=== PATIENT | female | born 1955 | race Caucasian/White ===

== ENCOUNTER 2017-07-08 08:16 | Outpatient (CLI) | payer MEDICAID ==
[~2017-07-08 08:16] MED LIST: ALBU18HF2 IH; ALBU18HF2 INH; ASPI-611 PO; CITA20TA11 PO; DIPH1TAB PO; EPIN0.3A3 IM; FLUT16SP10 NS; GABA-338 PO; IPRA3AMP IH; MECL-111 PO; MEGE20TA PO; MELO-100 PO; MODA200T25 PO; OMEP20TA5 PO; ONDA8TAB6 PO; OXYC30TA88 PO; PANCREAZE 4,201 EACH PO; VAL5T PO; ZONI100C6 PO
== END 2017-07-08 23:59 | disposition home or self-care (01) ==
LOC: RAD 08:16
DX: R56.9 Unspecified convulsions (principal); I10 Essential (primary) hypertension; E11.9 Type 2 diabetes mellitus without complications; J44.9 Chronic obstructive pulmonary disease, unspecified; Z87.891 Personal history of nicotine dependence
CPT/HCPCS: 95819

== ENCOUNTER 2017-08-10 13:03 | Emergency (ER) | payer MEDICAID ==
[~2017-08-10] VITALS: Ht 152.4 cm; Wt 49.6 kg
[~2017-08-10 13:03] MED LIST changes: +CITA-278 PO; -CITA20TA11 PO
[2017-08-10] MEDS ORDERED: normal saline 1000ml 1,000 ML IV ONE ×2 (13:21→14:38)
[2017-08-10 13:52] LABS: BASOPHILS % (AUTO) 0.1 % (0-1); EOSINOPHILS # (AUTO) 0.1 X10'3 (0-0.9); EOSINOPHILS % (AUTO) 0.9 % (0-6); HEMATOCRIT 34.7 % (35.0-45.0); HEMOGLOBIN 11.7 g/dl (12.0-16.0); LYMPHOCYTES # (AUTO) 0.7 X10'3 (1.1-4.8); LYMPHOCYTES % (AUTO) 8.6 % (21-51); MEAN CORPUSCULAR HEMOGLOBIN 32.6 PG (27.0-31.0); MEAN CORPUSCULAR HGB CONC 33.7 % (33.0-36.5); MEAN CORPUSCULAR VOLUME 96.7 FL (78-98); MEAN PLATELET VOLUME 7.8 FL (7.4-10.4); MONOCYTES % (AUTO) 0.4 % (2-12); NEUTROPHILS # (AUTO) 6.9 X10'3 (1.8-7.7); PLATELET COUNT 336 X10'3 (140-440); RED BLOOD COUNT 3.59 X10'6 (4.20-5.60); RED CELL DISTRIBUTION WIDTH 16.5 % (11.5-14.5); WHITE BLOOD COUNT 7.6 X10'3 (4.5-11.0)
[2017-08-10 14:01] LABS: INR 1.1 INR; PARTIAL THROMBOPLASTIN TIME 29 SECONDS (22-32); PROTHROMBIN TIME 10.9 SECONDS (9.0-12.0)
[2017-08-10 14:15] LABS: ALANINE AMINOTRANSFERASE 18 U/L (12-78); ALBUMIN 3.1 G/DL (3.4-5.0); ALBUMIN/GLOBULIN RATIO 0.7 (1.1-1.5); ALKALINE PHOSPHATASE 104 IU/L (46-116); ANION GAP 9 (8-16); ASPARTATE AMINO TRANSFERASE 24 U/L (10-37); BILIRUBIN,TOTAL 0.3 MG/DL (0.1-1.0); BLOOD UREA NITROGEN 10 MG/DL (7-18); BUN/CREATININE RATIO 8.6 (6.6-38.0); CHLORIDE 103 MMOL/L (99-107); CREATININE 1.16 MG/DL (0.40-0.90); ETHANOL < 0.010 GM/DL (0.0-0.010); GLUCOSE 152 MG/DL (70-104); LIPASE 106 U/L (73-393); MAGNESIUM 1.8 MG/DL (1.5-2.4); POTASSIUM 3.8 MMOL/L (3.5-5.1); SODIUM 137 MMOL/L (135-145); TOTAL CARBON DIOXIDE 24.7 MMOL/L (24-32); TOTAL PROTEIN 7.6 G/DL (6.4-8.2); eGFR 47 ML/MIN
[2017-08-10] MEDS ORDERED: normal saline 1000ML IV soln IVB ONE (14:40)
[2017-08-10 15:56] LABS: CLARITY,URINE SLIGHTLY CLOUDY (Clear); COLOR,URINE YELLOW (Yellow); GLUCOSE, URINE NEGATIVE (Neg); KETONES,URINE NEGATIVE (Neg); LEUKOCYTE ESTERASE ,URINE MODERATE (Neg); NITRITES, URINE POSITIVE (Neg); OCCULT BLOOD,URINE TRACE-INTACT (Neg); PH,URINE 6.5 (4.8-8.0); PROTEIN,URINE NEGATIVE (Neg); UROBILINOGEN,URINE 0.2 E.U/dL (0.2-1.0)
[2017-08-10 15:59] LABS: UA COLLECTION TYPE CLN CATCH MIDSTREAM
[2017-08-10 16:08] LABS: URINE AMPHETAMINE SCREEN NEGATIVE (Neg); URINE BARBITUATE SCREEN NEGATIVE (Neg); URINE BENZODIAZEPINES SCREEN POSITIVE (Neg); URINE CANNABINOID SCREEN NEGATIVE (Neg); URINE COCAINE SCREEN NEGATIVE (Neg); URINE METHADONE SCREEN NEGATIVE (Neg); URINE OPIATE SCREEN POSITIVE (Neg); URINE PHENCYCLIDINE SCREEN NEGATIVE (Neg)
[2017-08-10 16:24] LABS: BACTERIA,URINE 4+ /HPF (Neg); MUCUS STRANDS FEW /LPF (Neg); RBC,URINE 0-2 /HPF (0-2); SQUAMOUS EPITHELIAL CELL,UR FEW /LPF (FEW)
[2017-08-10 16:25] LABS: HYALINE CASTS 0-3 /LPF (NEGATIVE)
[2017-08-10 16:26] LABS: WBC CLUMPS,URINE FEW /HPF (NEGATIVE)
[2017-08-10] MEDS ORDERED: CEPH250T PO (16:49)
[2017-08-10] MEDS ORDERED: CefTRIAXone 2gm/D5W 50ml 50 ML IV ONE (16:50)
[2017-08-10 18:12] VITALS: BP 121/55
== END 2017-08-10 18:17 | disposition home or self-care (01) ==
LOC: ER 13:04
DX: N39.0 Urinary tract infection, site not specified (principal); I10 Essential (primary) hypertension; K21.9 Gastro-esophageal reflux disease without esophagitis; E11.9 Type 2 diabetes mellitus without complications; G89.29 Other chronic pain; Z86.73 Personal history of transient ischemic attack (TIA), and cerebral infarction without residual deficits; Z90.49 Acquired absence of other specified parts of digestive tract; Z98.890 Other specified postprocedural states; Z88.5 Allergy status to narcotic agent; Z88.8 Allergy status to other drugs, medicaments and biological substances; Z91.030 Bee allergy status; Z79.82 Long term (current) use of aspirin; Z79.899 Other long term (current) drug therapy; W19.XXXA Unspecified fall, initial encounter; Y92.89 Other specified places as the place of occurrence of the external cause; Y93.89 Activity, other specified; Y99.8 Other external cause status
CPT/HCPCS: 36415; 71045; 80053; 80305; 80320; 81001; 83605; 83690; 83735; 83880; 84484; 85025; 85610; 85730; 87040; 87077; 87088; 87186; 96365; 99285; J0696; J7030

== ENCOUNTER 2017-10-22 22:59 | Emergency (ER) | payer MEDICAID ==
[~2017-10-22] VITALS: Ht 162.6 cm; Wt 45.0 kg
[~2017-10-22 22:59] MED LIST changes: +CEPH250T PO; -IPRA3AMP IH; +IPRA3AMP31 IH
[2017-10-22 23:49] LABS: BASOPHILS % (AUTO) 0 % (0-1); EOSINOPHILS # (AUTO) 0.2 X10'3 (0-0.9); EOSINOPHILS % (AUTO) 1.2 % (0-6); HEMATOCRIT 31.5 % (35.0-45.0); HEMOGLOBIN 10.6 g/dl (12.0-16.0); LYMPHOCYTES # (AUTO) 1.3 X10'3 (1.1-4.8); MEAN CORPUSCULAR HEMOGLOBIN 32.9 PG (27.0-31.0); MEAN CORPUSCULAR HGB CONC 33.6 % (33.0-36.5); MEAN CORPUSCULAR VOLUME 97.8 FL (78-98); MEAN PLATELET VOLUME 7.6 FL (7.4-10.4); MONOCYTES # (AUTO) 0.1 X10'3 (0-0.9); NEUTROPHILS # (AUTO) 12.6 X10'3 (1.8-7.7); NEUTROPHILS % (AUTO) 88.8 % (42-75); PLATELET COUNT 362 X10'3 (140-440); RED BLOOD COUNT 3.22 X10'6 (4.20-5.60); RED CELL DISTRIBUTION WIDTH 15.5 % (11.5-14.5); WHITE BLOOD COUNT 14.2 X10'3 (4.5-11.0)
[2017-10-22 23:55] LABS: INR 1.1 INR; PROTHROMBIN TIME 11.5 SECONDS (9.0-12.0)
[2017-10-22 23:59] LABS: ALANINE AMINOTRANSFERASE 13 U/L (12-78); ALBUMIN/GLOBULIN RATIO 0.7 (1.1-1.5); ALKALINE PHOSPHATASE 274 IU/L (46-116); AMYLASE 575 U/L (25-115); ANION GAP 12 (8-16); ASPARTATE AMINO TRANSFERASE 15 U/L (10-37); BILIRUBIN,TOTAL 0.3 MG/DL (0.1-1.0); BLOOD UREA NITROGEN 27 MG/DL (7-18); BUN/CREATININE RATIO 18.5 (6.6-38.0); CALCIUM 9.3 MG/DL (8.5-10.1); CHLORIDE 98 MMOL/L (99-107); CREATININE 1.46 MG/DL (0.40-0.90); GLUCOSE 158 MG/DL (70-104); POTASSIUM 3.5 MMOL/L (3.5-5.1); SODIUM 130 MMOL/L (135-145); TOTAL CARBON DIOXIDE 20.5 MMOL/L (24-32); TOTAL PROTEIN 7.5 G/DL (6.4-8.2); eGFR 36 ML/MIN
[2017-10-23 00:23] LABS: LIPASE 3292 U/L (73-393)
[2017-10-23] MEDS ORDERED: ondansetron/PF 4mg/2ml inj IV ONE (01:00)
[2017-10-23] MEDS ORDERED: morphine 4 MG/ML inj SYRINge IV ONE (01:00)
[2017-10-23] MEDS ORDERED: normal saline 1000ML IV soln IVB ONE (01:00)
[2017-10-23 01:19] LABS: ETHANOL < 0.010 GM/DL (0.0-0.010); MAGNESIUM 1.5 MG/DL (1.5-2.4)
[2017-10-23 01:37] LABS: LARGE PLATELETS FEW; PLATELET ESTIMATE NORMAL; TOTAL CELLS COUNTED 100
[2017-10-23 01:38] LABS: BURR CELLS 1+; POIKILOCYTOSIS FEW; SCHISTOCYTES FEW
[2017-10-23 01:41] LABS: CLARITY,URINE SLIGHTLY CLOUDY (Clear); COLOR,URINE YELLOW (Yellow); GLUCOSE, URINE NEGATIVE (Neg); KETONES,URINE NEGATIVE (Neg); LEUKOCYTE ESTERASE ,URINE TRACE (Neg); NITRITES, URINE NEGATIVE (Neg); OCCULT BLOOD,URINE TRACE-INTACT (Neg); PROTEIN,URINE TRACE mg/dl (Neg); UROBILINOGEN,URINE 0.2 E.U/dL (0.2-1.0)
[2017-10-23 01:49] LABS: UA COLLECTION TYPE STRAIGHT CATH
[2017-10-23 02:10] LABS: RBC,URINE 0-2 /HPF (0-2); WBC,URINE 0-4 /HPF (0-4)
[2017-10-23 02:11] LABS: BACTERIA,URINE 3+ /HPF (Neg); MUCUS STRANDS NONE SEEN /LPF (Neg); SQUAMOUS EPITHELIAL CELL,UR MANY /LPF (FEW)
[2017-10-23 03:35] VITALS: BP 127/71
== END 2017-10-23 03:44 | disposition home or self-care (01) ==
LOC: ER 23:00
DX: K85.90 Acute pancreatitis without necrosis or infection, unspecified (principal); E86.0 Dehydration; I70.0 Atherosclerosis of aorta; I10 Essential (primary) hypertension; K21.9 Gastro-esophageal reflux disease without esophagitis; G89.29 Other chronic pain; E11.9 Type 2 diabetes mellitus without complications; Z90.49 Acquired absence of other specified parts of digestive tract; Z98.890 Other specified postprocedural states; Z79.2 Long term (current) use of antibiotics; Z88.8 Allergy status to other drugs, medicaments and biological substances; Z88.1 Allergy status to other antibiotic agents; Z91.030 Bee allergy status; Z79.82 Long term (current) use of aspirin; Z79.899 Other long term (current) drug therapy; Z86.73 Personal history of transient ischemic attack (TIA), and cerebral infarction without residual deficits
CPT/HCPCS: 36415; 74176; 80053; 80320; 81001; 82150; 83690; 83735; 85025; 85610; 87077; 87088; 87186; 96361; 96374; 96375; 99285; J2270; J2405

== ENCOUNTER 2017-11-06 16:09 | Inpatient (IN) | payer MEDICAID ==
[~2017-11-06] VITALS: Ht 152.4 cm; Wt 56.2 kg
[2017-11-06] MEDS ORDERED: normal saline 1000ML IV soln IVB ONE (16:25)
[2017-11-06 16:52] LABS: BASOPHILS # (AUTO) 0.1 X10'3 (0-0.2); BASOPHILS % (AUTO) 0.4 % (0-1); EOSINOPHILS # (AUTO) 0.2 X10'3 (0-0.9); EOSINOPHILS % (AUTO) 1.4 % (0-6); HEMATOCRIT 32.3 % (35.0-45.0); HEMOGLOBIN 10.9 g/dl (12.0-16.0); LYMPHOCYTES # (AUTO) 2.2 X10'3 (1.1-4.8); LYMPHOCYTES % (AUTO) 16.1 % (21-51); MEAN CORPUSCULAR HEMOGLOBIN 33.4 PG (27.0-31.0); MEAN CORPUSCULAR HGB CONC 33.9 % (33.0-36.5); MEAN CORPUSCULAR VOLUME 98.7 FL (78-98); MEAN PLATELET VOLUME 7.1 FL (7.4-10.4); MONOCYTES # (AUTO) 0.6 X10'3 (0-0.9); MONOCYTES % (AUTO) 4.8 % (2-12); NEUTROPHILS # (AUTO) 10.5 X10'3 (1.8-7.7); NEUTROPHILS % (AUTO) 77.3 % (42-75); PLATELET COUNT 401 X10'3 (140-440); RED BLOOD COUNT 3.27 X10'6 (4.20-5.60); RED CELL DISTRIBUTION WIDTH 17.7 % (11.5-14.5); WHITE BLOOD COUNT 13.6 X10'3 (4.5-11.0)
[2017-11-06 17:01] LABS: INR 1.2 INR; PROTHROMBIN TIME 12.1 SECONDS (9.0-12.0)
[2017-11-06 17:07] LABS: ALANINE AMINOTRANSFERASE 38 U/L (12-78); ALBUMIN 2.5 G/DL (3.4-5.0); ALBUMIN/GLOBULIN RATIO 0.6 (1.1-1.5); ALKALINE PHOSPHATASE 205 IU/L (46-116); ANION GAP 15 (8-16); ASPARTATE AMINO TRANSFERASE 39 U/L (10-37); BILIRUBIN,TOTAL 0.6 MG/DL (0.1-1.0); BLOOD UREA NITROGEN 20 MG/DL (7-18); BUN/CREATININE RATIO 14.7 (6.6-38.0); CALCIUM 8.3 MG/DL (8.5-10.1); CHLORIDE 96 MMOL/L (99-107); CREATININE 1.36 MG/DL (0.40-0.90); ETHANOL < 0.010 GM/DL (0.0-0.010); GLUCOSE 133 MG/DL (70-104); LIPASE 422 U/L (73-393); SODIUM 131 MMOL/L (135-145); TOTAL CARBON DIOXIDE 20.5 MMOL/L (24-32); TOTAL PROTEIN 6.6 G/DL (6.4-8.2); eGFR 39 ML/MIN
[2017-11-06 17:10] LABS: POTASSIUM 2.4 MMOL/L (3.5-5.1)
[2017-11-06] MEDS: potassium 10mEq/100ml NS w/LIDOcaine (10mg/bag) IV SCH ×2 (17:59→20:47)
[2017-11-06 18:00] LABS: CLARITY,URINE CLOUDY (Clear); COLOR,URINE YELLOW (Yellow); GLUCOSE, URINE NEGATIVE (Neg); KETONES,URINE NEGATIVE (Neg); LEUKOCYTE ESTERASE ,URINE SMALL (Neg); NITRITES, URINE NEGATIVE (Neg); OCCULT BLOOD,URINE TRACE-LYSED (Neg); PROTEIN,URINE TRACE mg/dl (Neg); UROBILINOGEN,URINE 0.2 E.U/dL (0.2-1.0)
[2017-11-06 18:04] LABS: UA COLLECTION TYPE STRAIGHT CATH
[2017-11-06 18:09] LABS: URINE AMPHETAMINE SCREEN NEGATIVE (Neg); URINE BARBITUATE SCREEN NEGATIVE (Neg); URINE BENZODIAZEPINES SCREEN NEGATIVE (Neg); URINE CANNABINOID SCREEN NEGATIVE (Neg); URINE COCAINE SCREEN NEGATIVE (Neg); URINE METHADONE SCREEN NEGATIVE (Neg); URINE OPIATE SCREEN POSITIVE (Neg); URINE PHENCYCLIDINE SCREEN NEGATIVE (Neg)
[2017-11-06 18:10] LABS: BACTERIA,URINE 4+ /HPF (Neg); MUCUS STRANDS NONE SEEN /LPF (Neg); RBC,URINE 0-2 /HPF (0-2); RENAL CELLS, URINE MODERATE /HPF; SQUAMOUS EPITHELIAL CELL,UR MANY /LPF (FEW); WBC CLUMPS,URINE MODERATE /HPF (NEGATIVE); WBC,URINE 20-30 /HPF (0-4)
[2017-11-06] MEDS ORDERED: CefTRIAXone/D5W-Rocephin 1gm 50 ML IV ONE (19:25)
[2017-11-06] MEDS ORDERED: acetaminophen 325mg tablet PO PRN (20:00)
[2017-11-06] MEDS ORDERED: ondansetron/PF 4mg/2ml inj IV PRN (20:00)
[2017-11-06] MEDS ORDERED: heparin, porcine 5000 units/ml vial SQ SCH (20:00)
[2017-11-06] MEDS ORDERED: OXYC20TA40 PO (20:05)
[2017-11-06] MEDS ORDERED: GABA600T2 PO (20:05)
[2017-11-06] MEDS ORDERED: LORazepam 2 mg/ml vial IV PRN (20:05)
[2017-11-06] MEDS ORDERED: potassium Cl 40MEQ/NS 500ml 500 ML IV PRN ×2 (20:05)
[2017-11-06] MEDS: potassium cl 20mEq in 1/2 NS 1,000 ML IV SCH (20:30)
[2017-11-06] MEDS: heparin, porcine 5000 units/ml vial SQ SCH (20:47)
[2017-11-06] MEDS: HYDROmorphone 1 mg/ml syringe IV PRN (20:49)
[2017-11-06 21:30] VITALS: BP 105/61
[2017-11-07] VITALS: BP 113/63
[2017-11-07 05:19] LABS: BASOPHILS % (AUTO) 0.1 % (0-1); EOSINOPHILS # (AUTO) 0.2 X10'3 (0-0.9); EOSINOPHILS % (AUTO) 1.7 % (0-6); HEMOGLOBIN 9.6 g/dl (12.0-16.0); LYMPHOCYTES # (AUTO) 2.5 X10'3 (1.1-4.8); LYMPHOCYTES % (AUTO) 19.4 % (21-51); MEAN CORPUSCULAR HEMOGLOBIN 33.1 PG (27.0-31.0); MEAN CORPUSCULAR HGB CONC 33.1 % (33.0-36.5); MEAN CORPUSCULAR VOLUME 99.7 FL (78-98); MEAN PLATELET VOLUME 7.7 FL (7.4-10.4); MONOCYTES # (AUTO) 0.7 X10'3 (0-0.9); NEUTROPHILS # (AUTO) 9.7 X10'3 (1.8-7.7); NEUTROPHILS % (AUTO) 73.8 % (42-75); PLATELET COUNT 387 X10'3 (140-440); RED BLOOD COUNT 2.91 X10'6 (4.20-5.60); WHITE BLOOD COUNT 13.1 X10'3 (4.5-11.0)
[2017-11-07] MEDS: potassium cl 20mEq in 1/2 NS 1,000 ML IV SCH ×3 (05:56→21:06)
[2017-11-07 06:32] LABS: ALANINE AMINOTRANSFERASE 28 U/L (12-78); ALBUMIN/GLOBULIN RATIO 0.6 (1.1-1.5); ALKALINE PHOSPHATASE 161 IU/L (46-116); ANION GAP 11 (8-16); ASPARTATE AMINO TRANSFERASE 30 U/L (10-37); BILIRUBIN,TOTAL 0.3 MG/DL (0.1-1.0); BLOOD UREA NITROGEN 16 MG/DL (7-18); BUN/CREATININE RATIO 13.9 (6.6-38.0); CALCIUM 7.6 MG/DL (8.5-10.1); CHLORIDE 106 MMOL/L (99-107); CREATININE 1.15 MG/DL (0.40-0.90); GLUCOSE 68 MG/DL (70-104); MAGNESIUM 1.4 MG/DL (1.5-2.4); POTASSIUM 3.8 MMOL/L (3.5-5.1); SODIUM 136 MMOL/L (135-145); TOTAL CARBON DIOXIDE 19.3 MMOL/L (24-32); TOTAL PROTEIN 5.4 G/DL (6.4-8.2); eGFR 48 ML/MIN
[2017-11-07 07:00] VITALS: BP 147/84
[2017-11-07] MEDS ORDERED: thiamine 100mg/ml 2ml inj. IV SCH (08:00)
[2017-11-07] MEDS: zonisamide 100mg capsule PO SCH (08:00)
[2017-11-07] MEDS: pantoprazole 40 MG vial IV SCH (08:57)
[2017-11-07] MEDS: cefTRIAXone 1g/NS 100ml IVPB 100 ML IV SCH (08:57)
[2017-11-07] MEDS: heparin, porcine 5000 units/ml vial SQ SCH ×2 (08:58→19:38)
[2017-11-07] MEDS: thiamine inj. 100 MG in normal saline 100ml IV soln 99 ML IV SCH (09:52)
[2017-11-07 11:00] VITALS: BP 124/75
[2017-11-07] MEDS: HYDROmorphone 1 mg/ml syringe IV PRN ×2 (19:37→23:24)
[2017-11-07 20:00] VITALS: BP 137/79
[2017-11-07 23:00] VITALS: BP 132/85
[2017-11-08] MEDS: HYDROmorphone 1 mg/ml syringe IV PRN ×2 (03:43→19:42)
[2017-11-08 05:57] LABS: BASOPHILS % (AUTO) 0.3 % (0-1); EOSINOPHILS # (AUTO) 0.3 X10'3 (0-0.9); EOSINOPHILS % (AUTO) 1.8 % (0-6); HEMATOCRIT 30.9 % (35.0-45.0); HEMOGLOBIN 10.1 g/dl (12.0-16.0); LYMPHOCYTES # (AUTO) 1.9 X10'3 (1.1-4.8); LYMPHOCYTES % (AUTO) 13.7 % (21-51); MEAN CORPUSCULAR HEMOGLOBIN 32.9 PG (27.0-31.0); MEAN CORPUSCULAR HGB CONC 32.7 % (33.0-36.5); MEAN CORPUSCULAR VOLUME 100.5 FL (78-98); MEAN PLATELET VOLUME 8.3 FL (7.4-10.4); MONOCYTES # (AUTO) 0.7 X10'3 (0-0.9); MONOCYTES % (AUTO) 4.7 % (2-12); NEUTROPHILS # (AUTO) 11.3 X10'3 (1.8-7.7); NEUTROPHILS % (AUTO) 79.5 % (42-75); PLATELET COUNT 412 X10'3 (140-440); RED BLOOD COUNT 3.07 X10'6 (4.20-5.60); WHITE BLOOD COUNT 14.2 X10'3 (4.5-11.0)
[2017-11-08 06:20] LABS: ALANINE AMINOTRANSFERASE 28 U/L (12-78); ALBUMIN 2.3 G/DL (3.4-5.0); ALBUMIN/GLOBULIN RATIO 0.6 (1.1-1.5); ALKALINE PHOSPHATASE 164 IU/L (46-116); ANION GAP 14 (8-16); ASPARTATE AMINO TRANSFERASE 28 U/L (10-37); BILIRUBIN,TOTAL 0.5 MG/DL (0.1-1.0); BLOOD UREA NITROGEN 10 MG/DL (7-18); BUN/CREATININE RATIO 9.9 (6.6-38.0); CALCIUM 7.8 MG/DL (8.5-10.1); CHLORIDE 102 MMOL/L (99-107); CREATININE 1.01 MG/DL (0.40-0.90); GLUCOSE 88 MG/DL (70-104); MAGNESIUM 1.3 MG/DL (1.5-2.4); POTASSIUM 3.6 MMOL/L (3.5-5.1); PREALBUMIN 11.7 MG/DL (19-36); SODIUM 131 MMOL/L (135-145); TOTAL CARBON DIOXIDE 15.5 MMOL/L (24-32); TOTAL PROTEIN 5.9 G/DL (6.4-8.2); eGFR 55 ML/MIN
[2017-11-08 07:55] VITALS: BP 150/69
[2017-11-08] MEDS: pantoprazole 40 MG vial IV SCH (08:18)
[2017-11-08] MEDS: heparin, porcine 5000 units/ml vial SQ SCH ×2 (08:19→19:42)
[2017-11-08] MEDS: cefTRIAXone 1g/NS 100ml IVPB 100 ML IV SCH (08:19)
[2017-11-08] MEDS: thiamine inj. 100 MG in normal saline 100ml IV soln 99 ML IV SCH (09:18)
[2017-11-08] MEDS ORDERED: potassium Cl 40MEQ/NS 500ml 500 ML IV PRN ×2 (09:30)
[2017-11-08] MEDS ORDERED: magnesium 4gm in 100ml NS 100 ML IV PRN (09:30)
[2017-11-08] MEDS ORDERED: magnesium Cl slow-release 64mg tablet PO PRN (09:30)
[2017-11-08] MEDS ORDERED: dextrose 5%-1/2 normal saline 1,000 ML IV SCH (09:30)
[2017-11-08] MEDS ORDERED: potassium Cl 20 mEq SR tablet PO PRN ×2 (09:30)
[2017-11-08] MEDS: zonisamide 100mg capsule PO SCH (10:03)
[2017-11-08 11:50] VITALS: BP 134/84
[2017-11-08] MEDS ORDERED: LIPA1CAP28 PO (13:35)
[2017-11-08] MEDS ORDERED: LIPA1CAP PO ×2 (13:40)
[2017-11-08] MEDS ORDERED: ASPI-611 PO (13:40)
[2017-11-08] MEDS: magnesium 1gm/100ml D5W IVPB 100 ML IV PRN ×2 (14:40→16:02)
[2017-11-08 20:00] VITALS: BP 113/82
[2017-11-08] MEDS ORDERED: MESSAGE TO PHARMACY PO ONE (20:15)
[2017-11-08] MEDS ORDERED: dextrose 50%-water 50ml dispensing syringe IV PRN ×2 (20:15)
[2017-11-08] MEDS ORDERED: dextrose ORAL solution 15 GM/59 ML bottle PO PRN ×2 (20:15)
[2017-11-08] MEDS ORDERED: glucagon, human recombinant 1mg kit SUBCUT PRN (20:15)
[2017-11-08] MEDS: insulin regular, human vial - multi-dose SQ SCH (20:44)
[2017-11-08 23:46] VITALS: BP 98/71
[2017-11-09] MEDS: HYDROmorphone 1 mg/ml syringe IV PRN ×3 (01:32→18:51)
[2017-11-09 05:27] LABS: BASOPHILS % (AUTO) 0.2 % (0-1); EOSINOPHILS # (AUTO) 0.1 X10'3 (0-0.9); EOSINOPHILS % (AUTO) 0.5 % (0-6); LYMPHOCYTES # (AUTO) 2.4 X10'3 (1.1-4.8); LYMPHOCYTES % (AUTO) 13.9 % (21-51); MEAN CORPUSCULAR HEMOGLOBIN 33.4 PG (27.0-31.0); MEAN CORPUSCULAR HGB CONC 33.4 % (33.0-36.5); MEAN CORPUSCULAR VOLUME 100.1 FL (78-98); MEAN PLATELET VOLUME 8.2 FL (7.4-10.4); MONOCYTES # (AUTO) 0.8 X10'3 (0-0.9); MONOCYTES % (AUTO) 4.8 % (2-12); NEUTROPHILS # (AUTO) 13.6 X10'3 (1.8-7.7); NEUTROPHILS % (AUTO) 80.6 % (42-75); PLATELET COUNT 392 X10'3 (140-440); WHITE BLOOD COUNT 16.9 X10'3 (4.5-11.0)
[2017-11-09 06:05] LABS: ALANINE AMINOTRANSFERASE 29 U/L (12-78); ALBUMIN 2.2 G/DL (3.4-5.0); ALBUMIN/GLOBULIN RATIO 0.6 (1.1-1.5); ALKALINE PHOSPHATASE 166 IU/L (46-116); ANION GAP 11 (8-16); ASPARTATE AMINO TRANSFERASE 42 U/L (10-37); BILIRUBIN,TOTAL 0.3 MG/DL (0.1-1.0); BLOOD UREA NITROGEN 12 MG/DL (7-18); CHLORIDE 104 MMOL/L (99-107); CREATININE 0.92 MG/DL (0.40-0.90); GLUCOSE 78 MG/DL (70-104); MAGNESIUM 2.8 MG/DL (1.5-2.4); POTASSIUM 3.2 MMOL/L (3.5-5.1); SODIUM 134 MMOL/L (135-145); TOTAL CARBON DIOXIDE 19.4 MMOL/L (24-32); TOTAL PROTEIN 5.9 G/DL (6.4-8.2); eGFR 61 ML/MIN
[2017-11-09 07:13] VITALS: BP 104/66
[2017-11-09 07:18] LABS: HEMOGLOBIN A1C 5.9 % (4.5-6.2)
[2017-11-09] MEDS: thiamine inj. 100 MG in normal saline 100ml IV soln 99 ML IV SCH (08:40)
[2017-11-09] MEDS: heparin, porcine 5000 units/ml vial SQ SCH ×2 (08:41→18:50)
[2017-11-09] MEDS: pantoprazole 40 MG vial IV SCH (08:41)
[2017-11-09] MEDS: cefTRIAXone 1g/NS 100ml IVPB 100 ML IV SCH (08:42)
[2017-11-09] MEDS: zonisamide 100mg capsule PO SCH (08:45)
[2017-11-09 12:00] VITALS: BP 104/68
[2017-11-09] MEDS: lactobacillus rhamnosus 10,000 MMU CELLS/CAPSULE PO SCH (19:15)
[2017-11-09 20:00] VITALS: BP 102/71
[2017-11-10] VITALS: BP 92/67
[2017-11-10 01:48] VITALS: BP 105/71
[2017-11-10] MEDS: HYDROmorphone 1 mg/ml syringe IV PRN ×4 (01:53→20:18)
[2017-11-10 04:48] LABS: BASOPHILS # (AUTO) 0.1 X10'3 (0-0.2); BASOPHILS % (AUTO) 0.5 % (0-1); EOSINOPHILS # (AUTO) 0.4 X10'3 (0-0.9); EOSINOPHILS % (AUTO) 2.4 % (0-6); HEMATOCRIT 33.6 % (35.0-45.0); HEMOGLOBIN 11.1 g/dl (12.0-16.0); LYMPHOCYTES # (AUTO) 1.9 X10'3 (1.1-4.8); LYMPHOCYTES % (AUTO) 12.7 % (21-51); MEAN CORPUSCULAR HEMOGLOBIN 33.2 PG (27.0-31.0); MEAN CORPUSCULAR HGB CONC 33.1 % (33.0-36.5); MEAN CORPUSCULAR VOLUME 100.5 FL (78-98); MEAN PLATELET VOLUME 8.4 FL (7.4-10.4); MONOCYTES # (AUTO) 0.5 X10'3 (0-0.9); MONOCYTES % (AUTO) 3.4 % (2-12); PLATELET COUNT 376 X10'3 (140-440); RED BLOOD COUNT 3.35 X10'6 (4.20-5.60); WHITE BLOOD COUNT 14.9 X10'3 (4.5-11.0)
[2017-11-10 05:00] LABS: ALANINE AMINOTRANSFERASE 23 U/L (12-78); ALBUMIN 1.8 G/DL (3.4-5.0); ALBUMIN/GLOBULIN RATIO 0.5 (1.1-1.5); ALKALINE PHOSPHATASE 135 IU/L (46-116); ANION GAP 8 (8-16); ASPARTATE AMINO TRANSFERASE 15 U/L (10-37); BILIRUBIN,TOTAL 0.2 MG/DL (0.1-1.0); BLOOD UREA NITROGEN 15 MG/DL (7-18); BUN/CREATININE RATIO 16.1 (6.6-38.0); CALCIUM 7.7 MG/DL (8.5-10.1); CHLORIDE 106 MMOL/L (99-107); CREATININE 0.93 MG/DL (0.40-0.90); GLUCOSE 267 MG/DL (70-104); MAGNESIUM 1.8 MG/DL (1.5-2.4); POTASSIUM 4.1 MMOL/L (3.5-5.1); SODIUM 134 MMOL/L (135-145); TOTAL CARBON DIOXIDE 19.6 MMOL/L (24-32); TOTAL PROTEIN 5.2 G/DL (6.4-8.2); eGFR 61 ML/MIN
[2017-11-10 07:42] VITALS: BP 105/75
[2017-11-10] MEDS: cefTRIAXone 1g/NS 100ml IVPB 100 ML IV SCH (08:39)
[2017-11-10] MEDS: lactobacillus rhamnosus 10,000 MMU CELLS/CAPSULE PO SCH ×2 (08:40→20:04)
[2017-11-10] MEDS: heparin, porcine 5000 units/ml vial SQ SCH ×2 (08:40→20:05)
[2017-11-10] MEDS: pantoprazole 40 MG vial IV SCH (08:40)
[2017-11-10] MEDS: thiamine inj. 100 MG in normal saline 100ml IV soln 99 ML IV SCH (08:41)
[2017-11-10] MEDS: zonisamide 100mg capsule PO SCH (08:41)
[2017-11-10 11:00] VITALS: BP 100/65
[2017-11-10 12:14] LABS: ANISOCYTOSIS 2+; LYMPHOCYTES % (MANUAL) 13 % (21-51); MONOCYTES % (MANUAL) 2 % (2-12); NEUTROPHILS % (MANUAL) 85 % (42-75); PLATELET ESTIMATE NORMAL; SMUDGE CELLS 1+; TOTAL CELLS COUNTED 100
[2017-11-10 12:15] LABS: BURR CELLS FEW; SCHISTOCYTES FEW; TARGET CELLS 1+
[2017-11-10 20:00] VITALS: BP 101/67
[2017-11-10 23:00] VITALS: BP 103/68
[2017-11-11] MEDS: HYDROmorphone 1 mg/ml syringe IV PRN ×3 (00:14→22:53)
[2017-11-11 05:17] LABS: BASOPHILS % (AUTO) 0 % (0-1); EOSINOPHILS # (AUTO) 0.3 X10'3 (0-0.9); EOSINOPHILS % (AUTO) 2.1 % (0-6); HEMATOCRIT 32.4 % (35.0-45.0); HEMOGLOBIN 10.6 g/dl (12.0-16.0); LYMPHOCYTES % (AUTO) 12.8 % (21-51); MEAN CORPUSCULAR HEMOGLOBIN 33.2 PG (27.0-31.0); MEAN CORPUSCULAR HGB CONC 32.7 % (33.0-36.5); MEAN CORPUSCULAR VOLUME 101.7 FL (78-98); MEAN PLATELET VOLUME 8.9 FL (7.4-10.4); MONOCYTES # (AUTO) 0.7 X10'3 (0-0.9); MONOCYTES % (AUTO) 4.8 % (2-12); NEUTROPHILS # (AUTO) 12.4 X10'3 (1.8-7.7); NEUTROPHILS % (AUTO) 80.3 % (42-75); PLATELET COUNT 334 X10'3 (140-440); RED BLOOD COUNT 3.19 X10'6 (4.20-5.60); RED CELL DISTRIBUTION WIDTH 19.5 % (11.5-14.5); WHITE BLOOD COUNT 15.4 X10'3 (4.5-11.0)
[2017-11-11 05:40] LABS: ALANINE AMINOTRANSFERASE 19 U/L (12-78); ALBUMIN 1.9 G/DL (3.4-5.0); ALBUMIN/GLOBULIN RATIO 0.6 (1.1-1.5); ALKALINE PHOSPHATASE 121 IU/L (46-116); ANION GAP 12 (8-16); ASPARTATE AMINO TRANSFERASE 16 U/L (10-37); BILIRUBIN,TOTAL 0.3 MG/DL (0.1-1.0); BLOOD UREA NITROGEN 17 MG/DL (7-18); BUN/CREATININE RATIO 20.2 (6.6-38.0); CALCIUM 7.9 MG/DL (8.5-10.1); CHLORIDE 108 MMOL/L (99-107); CREATININE 0.84 MG/DL (0.40-0.90); GLUCOSE 290 MG/DL (70-104); POTASSIUM 3.9 MMOL/L (3.5-5.1); PREALBUMIN 12.5 MG/DL (19-36); SODIUM 139 MMOL/L (135-145); TOTAL CARBON DIOXIDE 18.9 MMOL/L (24-32); TOTAL PROTEIN 5.2 G/DL (6.4-8.2); eGFR 68 ML/MIN
[2017-11-11 08:00] VITALS: BP 101/70
[2017-11-11] MEDS: lactobacillus rhamnosus 10,000 MMU CELLS/CAPSULE PO SCH ×2 (08:00→20:09)
[2017-11-11] MEDS: cefTRIAXone 1g/NS 100ml IVPB 100 ML IV SCH (08:02)
[2017-11-11] MEDS: zonisamide 100mg capsule PO SCH ×2 (08:02→09:41)
[2017-11-11] MEDS: heparin, porcine 5000 units/ml vial SQ SCH ×2 (08:03→20:10)
[2017-11-11] MEDS: pantoprazole 40 MG vial IV SCH (08:05)
[2017-11-11 08:34] LABS: ANISOCYTOSIS 2+; PLATELET ESTIMATE NORMAL
[2017-11-11 08:35] LABS: TARGET CELLS 1+
[2017-11-11 08:38] LABS: BURR CELLS FEW
[2017-11-11 08:39] LABS: POIKILOCYTOSIS 1+
[2017-11-11] MEDS: thiamine inj. 100 MG in normal saline 100ml IV soln 99 ML IV SCH (10:09)
[2017-11-11 11:30] VITALS: BP 98/68
[2017-11-11 18:00] VITALS: BP 96/64
[2017-11-11 22:58] VITALS: BP 103/79
[2017-11-11 23:48] VITALS: BP 101/66
[2017-11-12 07:04] VITALS: BP 97/62
[2017-11-12] MEDS: cefTRIAXone 1g/NS 100ml IVPB 100 ML IV SCH (07:18)
[2017-11-12] MEDS: heparin, porcine 5000 units/ml vial SQ SCH ×2 (07:18→21:23)
[2017-11-12] MEDS: pantoprazole 40 MG vial IV SCH (07:18)
[2017-11-12] MEDS: lactobacillus rhamnosus 10,000 MMU CELLS/CAPSULE PO SCH ×2 (08:00→21:24)
[2017-11-12] MEDS: thiamine inj. 100 MG in normal saline 100ml IV soln 99 ML IV SCH (08:18)
[2017-11-12 09:39] LABS: BASOPHILS % (AUTO) 0 % (0-1); EOSINOPHILS # (AUTO) 0.4 X10'3 (0-0.9); EOSINOPHILS % (AUTO) 2.7 % (0-6); HEMATOCRIT 28.9 % (35.0-45.0); HEMOGLOBIN 9.6 g/dl (12.0-16.0); LYMPHOCYTES # (AUTO) 1.4 X10'3 (1.1-4.8); LYMPHOCYTES % (AUTO) 10.7 % (21-51); MEAN CORPUSCULAR HEMOGLOBIN 33.8 PG (27.0-31.0); MEAN CORPUSCULAR HGB CONC 33.4 % (33.0-36.5); MEAN CORPUSCULAR VOLUME 101.1 FL (78-98); MEAN PLATELET VOLUME 8.3 FL (7.4-10.4); MONOCYTES # (AUTO) 0.5 X10'3 (0-0.9); MONOCYTES % (AUTO) 3.5 % (2-12); NEUTROPHILS # (AUTO) 11.1 X10'3 (1.8-7.7); NEUTROPHILS % (AUTO) 83.1 % (42-75); PLATELET COUNT 309 X10'3 (140-440); RED BLOOD COUNT 2.86 X10'6 (4.20-5.60); RED CELL DISTRIBUTION WIDTH 20.5 % (11.5-14.5); WHITE BLOOD COUNT 13.3 X10'3 (4.5-11.0)
[2017-11-12 09:47] LABS: ALBUMIN 1.8 G/DL (3.4-5.0); ANION GAP 10 (8-16); BLOOD UREA NITROGEN 20 MG/DL (7-18); BUN/CREATININE RATIO 26.7 (6.6-38.0); CALCIUM 8.1 MG/DL (8.5-10.1); CHLORIDE 112 MMOL/L (99-107); CREATININE 0.75 MG/DL (0.40-0.90); GLUCOSE 291 MG/DL (70-104); POTASSIUM 4.4 MMOL/L (3.5-5.1); SODIUM 143 MMOL/L (135-145); TOTAL CARBON DIOXIDE 21.3 MMOL/L (24-32); eGFR 78 ML/MIN
[2017-11-12 10:41] LABS: ANISOCYTOSIS 3+; HYPOCHROMASIA 1+; PLATELET ESTIMATE NORMAL
[2017-11-12] MEDS: normal saline 1000ml 1,000 ML IV SCH (15:16)
[2017-11-12] MEDS: HYDROmorphone 1 mg/ml syringe IV PRN (17:25)
[2017-11-12 18:00] VITALS: BP 95/64
[2017-11-13] VITALS: BP 99/70
[2017-11-13] MEDS: normal saline 1000ml 1,000 ML IV SCH ×2 (04:01→18:35)
[2017-11-13 07:10] VITALS: BP 103/63
[2017-11-13] MEDS: pantoprazole 40 MG vial IV SCH (07:10)
[2017-11-13] MEDS: cefTRIAXone 1g/NS 100ml IVPB 100 ML IV SCH (07:10)
[2017-11-13] MEDS: zonisamide 100mg capsule PO SCH (08:50)
[2017-11-13] MEDS: thiamine inj. 100 MG in normal saline 100ml IV soln 99 ML IV SCH (08:50)
[2017-11-13] MEDS: lactobacillus rhamnosus 10,000 MMU CELLS/CAPSULE PO SCH ×2 (08:50→19:26)
[2017-11-13] MEDS: heparin, porcine 5000 units/ml vial SQ SCH ×2 (08:51→19:26)
[2017-11-13 09:29] LABS: C DIFF ANTIGEN NEGATIVE (NEGATIVE); C DIFF SPECIMEN=DIARRHEA? ACCEPTABLE; C DIFFICILE TOXINS A&B NEGATIVE (Neg)
[2017-11-13 11:26] VITALS: BP 101/65
[2017-11-13 18:00] VITALS: BP 121/67
[2017-11-13] MEDS ORDERED: lactose-reduced food (Ensure Enlive) - 237ml bottle PO SCH (18:00)
[2017-11-13] MEDS: megestrol acetate 400mg/10ml UD oral suspension PO SCH (19:26)
[2017-11-14] VITALS: BP 120/75
[2017-11-14] MEDS: HYDROmorphone 1 mg/ml syringe IV PRN (01:09)
[2017-11-14 04:50] LABS: HEMATOCRIT 28.7 % (35.0-45.0); HEMOGLOBIN 9.5 g/dl (12.0-16.0); MEAN CORPUSCULAR HEMOGLOBIN 33.7 PG (27.0-31.0); MEAN CORPUSCULAR HGB CONC 33.2 % (33.0-36.5); MEAN CORPUSCULAR VOLUME 101.5 FL (78-98); MEAN PLATELET VOLUME 9.5 FL (7.4-10.4); PLATELET COUNT 261 X10'3 (140-440); RED BLOOD COUNT 2.83 X10'6 (4.20-5.60); RED CELL DISTRIBUTION WIDTH 19.2 % (11.5-14.5); WHITE BLOOD COUNT 12.1 X10'3 (4.5-11.0)
[2017-11-14 04:57] LABS: ALANINE AMINOTRANSFERASE 48 U/L (12-78); ALBUMIN 1.9 G/DL (3.4-5.0); ALBUMIN/GLOBULIN RATIO 0.6 (1.1-1.5); ALKALINE PHOSPHATASE 113 IU/L (46-116); ANION GAP 11 (8-16); ASPARTATE AMINO TRANSFERASE 31 U/L (10-37); BILIRUBIN,TOTAL 0.3 MG/DL (0.1-1.0); BLOOD UREA NITROGEN 12 MG/DL (7-18); BUN/CREATININE RATIO 16.2 (6.6-38.0); CALCIUM 7.8 MG/DL (8.5-10.1); CHLORIDE 109 MMOL/L (99-107); CREATININE 0.74 MG/DL (0.40-0.90); GLUCOSE 179 MG/DL (70-104); POTASSIUM 3.6 MMOL/L (3.5-5.1); SODIUM 140 MMOL/L (135-145); TOTAL CARBON DIOXIDE 19.6 MMOL/L (24-32); eGFR 79 ML/MIN
[2017-11-14 05:46] LABS: TOTAL CELLS COUNTED 100
[2017-11-14 05:47] LABS: ANISOCYTOSIS 2+; HYPOCHROMASIA 1+; PLATELET ESTIMATE NORMAL; TARGET CELLS FEW; TEAR DROP CELLS FEW
[2017-11-14] MEDS: normal saline 1000ml 1,000 ML IV SCH ×2 (06:35→20:29)
[2017-11-14 07:00] VITALS: BP 106/68
[2017-11-14] MEDS: lactobacillus rhamnosus 10,000 MMU CELLS/CAPSULE PO SCH ×2 (07:17→20:22)
[2017-11-14] MEDS: cefTRIAXone 1g/NS 100ml IVPB 100 ML IV SCH (07:17)
[2017-11-14] MEDS: pantoprazole 40 MG vial IV SCH (07:17)
[2017-11-14] MEDS: heparin, porcine 5000 units/ml vial SQ SCH ×2 (07:18→20:23)
[2017-11-14] MEDS: megestrol acetate 400mg/10ml UD oral suspension PO SCH ×2 (07:26→20:22)
[2017-11-14] MEDS: zonisamide 100mg capsule PO SCH (07:27)
[2017-11-14] MEDS: thiamine inj. 100 MG in normal saline 100ml IV soln 99 ML IV SCH (07:33)
[2017-11-14 10:23] LABS: LIPASE 1311 U/L (73-393)
[2017-11-14 11:00] VITALS: BP 109/71
[2017-11-14] MEDS: diatr meglu/diatrizoate 30ml oral sol.-(3 dose) bottle PO SCH ×3 (12:02→18:18)
[2017-11-14] MEDS ORDERED: iohexol 300mg/ml 100ml inj. ONE (18:09)
[2017-11-14 18:50] VITALS: BP 126/78
[2017-11-14] MEDS: loperamide 2mg capsule PO PRN (21:34)
[2017-11-14 23:56] VITALS: BP 116/68
[2017-11-15] MEDS: loperamide 2mg capsule PO PRN ×3 (03:36→23:07)
[2017-11-15 07:34] VITALS: BP 114/75
[2017-11-15] MEDS: lactobacillus rhamnosus 10,000 MMU CELLS/CAPSULE PO SCH ×2 (08:06→19:46)
[2017-11-15] MEDS: citalopram 20mg tablet PO SCH (08:06)
[2017-11-15] MEDS: pantoprazole 40 MG vial IV SCH (08:06)
[2017-11-15] MEDS: cefTRIAXone 1g/NS 100ml IVPB 100 ML IV SCH (08:07)
[2017-11-15] MEDS: megestrol acetate 400mg/10ml UD oral suspension PO SCH ×2 (08:10→19:46)
[2017-11-15] MEDS: zonisamide 100mg capsule PO SCH (08:11)
[2017-11-15] MEDS: heparin, porcine 5000 units/ml vial SQ SCH (08:11)
[2017-11-15] MEDS: thiamine inj. 100 MG in normal saline 100ml IV soln 99 ML IV SCH (08:48)
[2017-11-15 11:44] VITALS: BP 108/68
[2017-11-15] MEDS: normal saline 1000ml 1,000 ML IV SCH ×2 (16:26→22:55)
[2017-11-15] MEDS ORDERED: MAGN400C PO (16:31)
[2017-11-15] MEDS ORDERED: ONDA8TAB13 PO (16:32)
[2017-11-15] MEDS ORDERED: DIPH1TAB PO (16:35)
[2017-11-15] MEDS: HYDROmorphone 1 mg/ml syringe IV PRN (19:46)
[2017-11-15 20:00] VITALS: BP 119/81
[2017-11-16] VITALS (9 sets, daily range): BP systolic 92–130; BP diastolic 55–80
[2017-11-16] MEDS: normal saline 1000ml 1,000 ML IV SCH (01:30)
[2017-11-16] MEDS: HYDROmorphone 1 mg/ml syringe IV PRN ×2 (02:10→21:38)
[2017-11-16] MEDS: loperamide 2mg capsule PO PRN (05:49)
[2017-11-16] MEDS: lactobacillus rhamnosus 10,000 MMU CELLS/CAPSULE PO SCH ×2 (08:00→21:18)
[2017-11-16] MEDS: citalopram 20mg tablet PO SCH (08:00)
[2017-11-16] MEDS: megestrol acetate 400mg/10ml UD oral suspension PO SCH ×2 (08:00→21:17)
[2017-11-16] MEDS: zonisamide 100mg capsule PO SCH (08:00)
[2017-11-16] MEDS ORDERED: normal saline 1000ml 1,000 ML IV SCH (08:22)
[2017-11-16] MEDS ORDERED: fentaNYL/PF 50MCG/1 ML 2ML syringe IV PRN (08:25)
[2017-11-16] MEDS ORDERED: MIDAZolam 5mg/5ml vial IV PRN (08:25)
[2017-11-16] MEDS ORDERED: LIDOcaine Viscous 15ml cup PO ONE (08:25)
[2017-11-16] MEDS ORDERED: simethicone 40mg/0.6ml oral drops 30ml MC ONE (08:25)
[2017-11-16] MEDS ORDERED: fentaNYL/PF 50MCG/1 ML 2ML syringe ONE (08:36)
[2017-11-16] MEDS ORDERED: MIDAZolam 5mg/5ml vial ONE (08:37)
[2017-11-16] MEDS ORDERED: LIDOcaine Viscous 15ml cup ONE (08:37)
[2017-11-16] MEDS: thiamine inj. 100 MG in normal saline 100ml IV soln 99 ML IV SCH (08:44)
[2017-11-16] MEDS: pantoprazole 40 MG vial IV SCH (08:44)
[2017-11-16 13:24] LABS: AFP,SERUM, TUMOR MARKER 2.5 ng/mL (0.0-8.3); CARCINOEMBRYONIC ANTIGEN 5.3 ng/mL (0.0-4.7)
[2017-11-16] MEDS: heparin, porcine 5000 units/ml vial SQ SCH (20:00)
[2017-11-17] VITALS: BP 99/57
[2017-11-17] MEDS: normal saline 1000ml 1,000 ML IV SCH ×2 (00:13→10:54)
[2017-11-17] MEDS: HYDROmorphone 1 mg/ml syringe IV PRN ×2 (04:32→20:34)
[2017-11-17 07:00] VITALS: BP 103/66
[2017-11-17] MEDS: heparin, porcine 5000 units/ml vial SQ SCH ×2 (08:37→20:34)
[2017-11-17] MEDS: thiamine 100mg tablet PO SCH (08:37)
[2017-11-17] MEDS: lactobacillus rhamnosus 10,000 MMU CELLS/CAPSULE PO SCH ×2 (08:37→20:33)
[2017-11-17] MEDS: megestrol acetate 400mg/10ml UD oral suspension PO SCH ×2 (08:37→20:33)
[2017-11-17] MEDS: citalopram 20mg tablet PO SCH (08:37)
[2017-11-17] MEDS: zonisamide 100mg capsule PO SCH (08:37)
[2017-11-17] MEDS: pantoprazole 40mg Tablet.DR PO SCH (08:43)
[2017-11-17] MEDS: LIPASE/PROTEASE/AMYLASE 4,200 unit CAPSULE.DR PO SCH ×2 (12:30→18:12)
[2017-11-17 13:14] LABS: BASOPHILS % (AUTO) 0.3 % (0-1); EOSINOPHILS # (AUTO) 0.3 X10'3 (0-0.9); EOSINOPHILS % (AUTO) 2.3 % (0-6); HEMATOCRIT 28.3 % (35.0-45.0); HEMOGLOBIN 9.4 g/dl (12.0-16.0); LYMPHOCYTES # (AUTO) 1.7 X10'3 (1.1-4.8); LYMPHOCYTES % (AUTO) 14.4 % (21-51); MEAN CORPUSCULAR HEMOGLOBIN 33.6 PG (27.0-31.0); MEAN CORPUSCULAR HGB CONC 33.1 % (33.0-36.5); MEAN CORPUSCULAR VOLUME 101.4 FL (78-98); MONOCYTES # (AUTO) 0.7 X10'3 (0-0.9); MONOCYTES % (AUTO) 5.8 % (2-12); NEUTROPHILS # (AUTO) 9.3 X10'3 (1.8-7.7); NEUTROPHILS % (AUTO) 77.2 % (42-75); PLATELET COUNT 209 X10'3 (140-440); RED BLOOD COUNT 2.79 X10'6 (4.20-5.60); RED CELL DISTRIBUTION WIDTH 20.8 % (11.5-14.5)
[2017-11-17 13:24] LABS: ALANINE AMINOTRANSFERASE 26 U/L (12-78); ALBUMIN 1.6 G/DL (3.4-5.0); ALBUMIN/GLOBULIN RATIO 0.5 (1.1-1.5); ALKALINE PHOSPHATASE 91 IU/L (46-116); ANION GAP 10 (8-16); ASPARTATE AMINO TRANSFERASE 21 U/L (10-37); BILIRUBIN,TOTAL 0.2 MG/DL (0.1-1.0); BLOOD UREA NITROGEN 6 MG/DL (7-18); CALCIUM 7.6 MG/DL (8.5-10.1); CHLORIDE 114 MMOL/L (99-107); CREATININE 0.75 MG/DL (0.40-0.90); GLUCOSE 169 MG/DL (70-104); SODIUM 143 MMOL/L (135-145); TOTAL CARBON DIOXIDE 18.8 MMOL/L (24-32); TOTAL PROTEIN 4.7 G/DL (6.4-8.2); eGFR 78 ML/MIN
[2017-11-17 13:25] LABS: POTASSIUM 2.8 MMOL/L (3.5-5.1)
[2017-11-17 14:58] LABS: ANISOCYTOSIS 3+; PLATELET ESTIMATE NORMAL; SMUDGE CELLS 2+; TOTAL CELLS COUNTED 100
[2017-11-17 14:59] LABS: HYPOCHROMASIA 1+; TARGET CELLS FEW
[2017-11-17 15:00] LABS: BURR CELLS 1+; SCHISTOCYTES FEW
[2017-11-17 15:01] LABS: TOXIC GRANULATION 2+
[2017-11-17] MEDS: potassium Cl 40MEQ/NS 500ml 500 ML IV PRN ×2 (15:03→23:17)
[2017-11-17 20:00] VITALS: BP 121/79
[2017-11-18] VITALS: BP 120/72
[2017-11-18] MEDS ORDERED: potassium Cl 40MEQ/NS 500ml 500 ML IV PRN (04:00)
[2017-11-18] MEDS: normal saline 1000ml 1,000 ML IV SCH ×2 (04:15→10:04)
[2017-11-18 04:51] LABS: BASOPHILS % (AUTO) 0.4 % (0-1); EOSINOPHILS # (AUTO) 0.3 X10'3 (0-0.9); EOSINOPHILS % (AUTO) 2.6 % (0-6); HEMATOCRIT 31.9 % (35.0-45.0); HEMOGLOBIN 10.4 g/dl (12.0-16.0); LYMPHOCYTES # (AUTO) 2.3 X10'3 (1.1-4.8); LYMPHOCYTES % (AUTO) 16.8 % (21-51); MEAN CORPUSCULAR HEMOGLOBIN 33.7 PG (27.0-31.0); MEAN CORPUSCULAR HGB CONC 32.7 % (33.0-36.5); MEAN CORPUSCULAR VOLUME 103.1 FL (78-98); MEAN PLATELET VOLUME 9.3 FL (7.4-10.4); MONOCYTES # (AUTO) 0.7 X10'3 (0-0.9); MONOCYTES % (AUTO) 4.9 % (2-12); NEUTROPHILS # (AUTO) 10.2 X10'3 (1.8-7.7); NEUTROPHILS % (AUTO) 75.3 % (42-75); PLATELET COUNT 227 X10'3 (140-440); RED BLOOD COUNT 3.09 X10'6 (4.20-5.60); RED CELL DISTRIBUTION WIDTH 19.8 % (11.5-14.5); WHITE BLOOD COUNT 13.5 X10'3 (4.5-11.0)
[2017-11-18 05:25] LABS: ALANINE AMINOTRANSFERASE 18 U/L (12-78); ALBUMIN 1.6 G/DL (3.4-5.0); ALBUMIN/GLOBULIN RATIO 0.5 (1.1-1.5); ALKALINE PHOSPHATASE 92 IU/L (46-116); ANION GAP 8 (8-16); ASPARTATE AMINO TRANSFERASE 13 U/L (10-37); BILIRUBIN,TOTAL 0.3 MG/DL (0.1-1.0); BLOOD UREA NITROGEN 5 MG/DL (7-18); BUN/CREATININE RATIO 5.7 (6.6-38.0); CALCIUM 7.5 MG/DL (8.5-10.1); CHLORIDE 115 MMOL/L (99-107); CREATININE 0.87 MG/DL (0.40-0.90); GLUCOSE 118 MG/DL (70-104); POTASSIUM 3.9 MMOL/L (3.5-5.1); PREALBUMIN 12.7 MG/DL (19-36); SODIUM 143 MMOL/L (135-145); TOTAL CARBON DIOXIDE 20.1 MMOL/L (24-32); TOTAL PROTEIN 4.9 G/DL (6.4-8.2); eGFR 66 ML/MIN
[2017-11-18 06:25] LABS: ACANTHOCYTES 1+; ANISOCYTOSIS 2+; PLATELET ESTIMATE NORMAL; TARGET CELLS FEW
[2017-11-18] MEDS: HYDROmorphone 1 mg/ml syringe IV PRN ×3 (06:44→22:01)
[2017-11-18 06:51] VITALS: BP 130/80
[2017-11-18] MEDS: zonisamide 100mg capsule PO SCH (07:26)
[2017-11-18] MEDS: lactobacillus rhamnosus 10,000 MMU CELLS/CAPSULE PO SCH ×3 (07:27→20:34)
[2017-11-18] MEDS: thiamine 100mg tablet PO SCH (07:27)
[2017-11-18] MEDS: pantoprazole 40mg Tablet.DR PO SCH (07:27)
[2017-11-18] MEDS: LIPASE/PROTEASE/AMYLASE 4,200 unit CAPSULE.DR PO SCH ×3 (07:27→17:30)
[2017-11-18] MEDS: megestrol acetate 400mg/10ml UD oral suspension PO SCH ×3 (07:28→20:34)
[2017-11-18] MEDS: heparin, porcine 5000 units/ml vial SQ SCH ×2 (07:28→20:34)
[2017-11-18] MEDS: citalopram 20mg tablet PO SCH (07:35)
[2017-11-18 10:59] VITALS: BP 115/75
[2017-11-18 18:00] VITALS: BP 127/79
[2017-11-19] VITALS: BP 137/68
[2017-11-19] MEDS: normal saline 1000ml 1,000 ML IV SCH ×2 (00:49→17:13)
[2017-11-19 07:04] VITALS: BP 107/66
[2017-11-19] MEDS: lactobacillus rhamnosus 10,000 MMU CELLS/CAPSULE PO SCH ×2 (07:57→19:04)
[2017-11-19] MEDS: thiamine 100mg tablet PO SCH (07:57)
[2017-11-19] MEDS: LIPASE/PROTEASE/AMYLASE 4,200 unit CAPSULE.DR PO SCH ×3 (07:57→17:30)
[2017-11-19] MEDS: pantoprazole 40mg Tablet.DR PO SCH (07:57)
[2017-11-19] MEDS: zonisamide 100mg capsule PO SCH (07:58)
[2017-11-19] MEDS: megestrol acetate 400mg/10ml UD oral suspension PO SCH ×2 (07:58→19:05)
[2017-11-19] MEDS: HYDROmorphone 1 mg/ml syringe IV PRN (07:59)
[2017-11-19] MEDS: heparin, porcine 5000 units/ml vial SQ SCH ×2 (07:59→20:35)
[2017-11-19] MEDS: citalopram 20mg tablet PO SCH (08:05)
[2017-11-19 12:04] VITALS: BP 118/78
[2017-11-19] MEDS ORDERED: potassium Cl 20 mEq SR tablet PO PRN ×4 (17:20)
[2017-11-19] MEDS ORDERED: magnesium Cl slow-release 64mg tablet PO PRN (17:20)
[2017-11-19] MEDS ORDERED: potassium Cl 40MEQ/NS 500ml 500 ML IV PRN (17:20)
[2017-11-19] MEDS ORDERED: magnesium 4gm in 100ml NS 100 ML IV PRN (17:20)
[2017-11-19] MEDS ORDERED: sodium phosphate inj. 30 MMOL in dextrose 5%-water 250 ML IV PRN (17:20)
[2017-11-19] MEDS ORDERED: sodium phosphate inj. 15 MMOL in dextrose 5%-water 150 ML IV PRN (17:20)
[2017-11-19] MEDS ORDERED: Neutra Phos packet PO PRN (17:20)
[2017-11-19 18:00] VITALS: BP 119/70
[2017-11-19 18:35] LABS: ALANINE AMINOTRANSFERASE 20 U/L (12-78); ALBUMIN 1.5 G/DL (3.4-5.0); ALBUMIN/GLOBULIN RATIO 0.5 (1.1-1.5); ALKALINE PHOSPHATASE 87 IU/L (46-116); ANION GAP 11 (8-16); ASPARTATE AMINO TRANSFERASE 15 U/L (10-37); BILIRUBIN,TOTAL 0.3 MG/DL (0.1-1.0); BLOOD UREA NITROGEN 5 MG/DL (7-18); BUN/CREATININE RATIO 7.4 (6.6-38.0); CALCIUM 7.5 MG/DL (8.5-10.1); CHLORIDE 111 MMOL/L (99-107); CREATININE 0.68 MG/DL (0.40-0.90); GLUCOSE 136 MG/DL (70-104); MAGNESIUM 1.3 MG/DL (1.5-2.4); PHOSPHORUS 2.6 MG/DL (2.3-4.5); POTASSIUM 3.2 MMOL/L (3.5-5.1); PREALBUMIN 11.8 MG/DL (19-36); SODIUM 142 MMOL/L (135-145); TOTAL CARBON DIOXIDE 19.7 MMOL/L (24-32); TOTAL PROTEIN 4.6 G/DL (6.4-8.2); TRIGLYCERIDES 80 MG/DL (20-135); eGFR 87 ML/MIN
[2017-11-19] MEDS: fat emulsion IV 100 ML, MVI, adult No.4 with vit. K 10 ML, Trace element-5 inj. 1 ML in... IV SCH ×4 (21:20)
[2017-11-19] MEDS ORDERED: Dextrose 10%-water IV solution 1,000 ML IV PRN (21:30)
[2017-11-20] VITALS: BP 117/74
[2017-11-20] MEDS: HYDROmorphone 1 mg/ml syringe IV PRN ×3 (01:53→17:59)
[2017-11-20] MEDS: normal saline 1000ml 1,000 ML IV SCH ×2 (02:04→22:55)
[2017-11-20] MEDS ORDERED: K, MAG and/or Phos replacement - Verify level? MC SCH (03:00)
[2017-11-20 05:35] LABS: ALANINE AMINOTRANSFERASE 16 U/L (12-78); ALBUMIN 1.4 G/DL (3.4-5.0); ALBUMIN/GLOBULIN RATIO 0.5 (1.1-1.5); ALKALINE PHOSPHATASE 85 IU/L (46-116); ANION GAP 9 (8-16); ASPARTATE AMINO TRANSFERASE 17 U/L (10-37); BILIRUBIN,TOTAL 0.3 MG/DL (0.1-1.0); BLOOD UREA NITROGEN 6 MG/DL (7-18); BUN/CREATININE RATIO 9.4 (6.6-38.0); CALCIUM 7.3 MG/DL (8.5-10.1); CHLORIDE 112 MMOL/L (99-107); CREATININE 0.64 MG/DL (0.40-0.90); GLUCOSE 173 MG/DL (70-104); MAGNESIUM 1.1 MG/DL (1.5-2.4); PHOSPHORUS 2.5 MG/DL (2.3-4.5); POTASSIUM 3.1 MMOL/L (3.5-5.1); SODIUM 140 MMOL/L (135-145); TOTAL PROTEIN 4.4 G/DL (6.4-8.2); eGFR > 90 ML/MIN
[2017-11-20 07:00] VITALS: BP 120/73
[2017-11-20] MEDS: heparin, porcine 5000 units/ml vial SQ SCH ×2 (07:47→19:23)
[2017-11-20] MEDS: citalopram 20mg tablet PO SCH (07:48)
[2017-11-20] MEDS: pantoprazole 40mg Tablet.DR PO SCH (07:48)
[2017-11-20] MEDS: lactobacillus rhamnosus 10,000 MMU CELLS/CAPSULE PO SCH ×2 (07:48→19:25)
[2017-11-20] MEDS: zonisamide 100mg capsule PO SCH (07:56)
[2017-11-20] MEDS: K and/or MAG REPLACEMENT MC SCH (08:00)
[2017-11-20] MEDS: megestrol acetate 400mg/10ml UD oral suspension PO SCH ×2 (08:00→19:24)
[2017-11-20] MEDS: LIPASE/PROTEASE/AMYLASE 4,200 unit CAPSULE.DR PO SCH ×3 (08:00→17:51)
[2017-11-20] MEDS: magnesium 1gm/100ml D5W IVPB 100 ML IV PRN ×2 (10:23→13:07)
[2017-11-20 11:00] VITALS: BP 118/79
[2017-11-20] MEDS: insulin regular, human vial - multi-dose SQ SCH ×2 (14:31→21:03)
[2017-11-20] MEDS: potassium Cl 40MEQ/NS 500ml 500 ML IV PRN (16:18)
[2017-11-20 18:00] VITALS: BP 156/72
[2017-11-20] MEDS: fat emulsion IV 100 ML, MVI, adult No.4 with vit. K 10 ML, Trace element-5 inj. 1 ML in... IV SCH ×4 (19:14)
[2017-11-21] VITALS: BP 125/75
[2017-11-21] MEDS: HYDROmorphone 1 mg/ml syringe IV PRN ×3 (00:04→22:59)
[2017-11-21] MEDS: normal saline 1000ml 1,000 ML IV SCH ×2 (02:15→16:09)
[2017-11-21] MEDS: insulin regular, human vial - multi-dose SQ SCH ×4 (02:36→21:03)
[2017-11-21 03:44] LABS: ALANINE AMINOTRANSFERASE 14 U/L (12-78); ALBUMIN 1.4 G/DL (3.4-5.0); ALBUMIN/GLOBULIN RATIO 0.4 (1.1-1.5); ALKALINE PHOSPHATASE 84 IU/L (46-116); ANION GAP 7 (8-16); ASPARTATE AMINO TRANSFERASE 16 U/L (10-37); BILIRUBIN,TOTAL 0.2 MG/DL (0.1-1.0); BLOOD UREA NITROGEN 11 MG/DL (7-18); BUN/CREATININE RATIO 19.6 (6.6-38.0); CALCIUM 6.8 MG/DL (8.5-10.1); CHLORIDE 111 MMOL/L (99-107); CREATININE 0.56 MG/DL (0.40-0.90); GLUCOSE 155 MG/DL (70-104); MAGNESIUM 2.1 MG/DL (1.5-2.4); PHOSPHORUS 2.6 MG/DL (2.3-4.5); POTASSIUM 3.6 MMOL/L (3.5-5.1); SODIUM 139 MMOL/L (135-145); TOTAL CARBON DIOXIDE 21.1 MMOL/L (24-32); TOTAL PROTEIN 4.6 G/DL (6.4-8.2); eGFR > 90 ML/MIN
[2017-11-21] MEDS: pantoprazole 40mg Tablet.DR PO SCH (06:38)
[2017-11-21] MEDS: K and/or MAG REPLACEMENT MC SCH (06:39)
[2017-11-21 07:00] VITALS: BP 103/67
[2017-11-21] MEDS: megestrol acetate 400mg/10ml UD oral suspension PO SCH ×2 (08:51→20:00)
[2017-11-21] MEDS: LIPASE/PROTEASE/AMYLASE 4,200 unit CAPSULE.DR PO SCH (08:52)
[2017-11-21] MEDS: lactobacillus rhamnosus 10,000 MMU CELLS/CAPSULE PO SCH ×2 (08:53→20:00)
[2017-11-21] MEDS: heparin, porcine 5000 units/ml vial SQ SCH ×2 (08:54→20:42)
[2017-11-21] MEDS: citalopram 20mg tablet PO SCH (08:54)
[2017-11-21] MEDS: zonisamide 100mg capsule PO SCH (08:57)
[2017-11-21] MEDS: fat emulsion IV 100 ML, MVI, adult No.4 with vit. K 10 ML, Trace element-5 inj. 1 ML in... IV SCH ×4 (10:28)
[2017-11-21 11:00] VITALS: BP 105/70
[2017-11-21 19:30] VITALS: BP 114/85
[2017-11-22] VITALS: BP 106/70
[2017-11-22] MEDS: insulin regular, human vial - multi-dose SQ SCH ×3 (02:40→19:53)
[2017-11-22] MEDS: fat emulsion IV 100 ML, MVI, adult No.4 with vit. K 10 ML, Trace element-5 inj. 1 ML in... IV SCH ×4 (04:24)
[2017-11-22 05:42] LABS: ALANINE AMINOTRANSFERASE 15 U/L (12-78); ALBUMIN 1.4 G/DL (3.4-5.0); ALBUMIN/GLOBULIN RATIO 0.5 (1.1-1.5); ALKALINE PHOSPHATASE 83 IU/L (46-116); ANION GAP 7 (8-16); ASPARTATE AMINO TRANSFERASE 23 U/L (10-37); BILIRUBIN,TOTAL 0.2 MG/DL (0.1-1.0); BLOOD UREA NITROGEN 15 MG/DL (7-18); BUN/CREATININE RATIO 29.4 (6.6-38.0); CALCIUM 7.6 MG/DL (8.5-10.1); CHLORIDE 112 MMOL/L (99-107); CREATININE 0.51 MG/DL (0.40-0.90); GLUCOSE 77 MG/DL (70-104); MAGNESIUM 1.8 MG/DL (1.5-2.4); PHOSPHORUS 2.8 MG/DL (2.3-4.5); POTASSIUM 3.4 MMOL/L (3.5-5.1); PREALBUMIN 11.4 MG/DL (19-36); SODIUM 139 MMOL/L (135-145); TOTAL CARBON DIOXIDE 20.2 MMOL/L (24-32); TOTAL PROTEIN 4.5 G/DL (6.4-8.2); TRIGLYCERIDES 51 MG/DL (20-135); eGFR > 90 ML/MIN
[2017-11-22] MEDS: normal saline 1000ml 1,000 ML IV SCH (06:14)
[2017-11-22] MEDS: K and/or MAG REPLACEMENT MC SCH (06:31)
[2017-11-22 07:00] VITALS: BP 121/76
[2017-11-22] MEDS: citalopram 20mg tablet PO SCH (08:00)
[2017-11-22] MEDS: lactobacillus rhamnosus 10,000 MMU CELLS/CAPSULE PO SCH ×2 (08:00→19:35)
[2017-11-22] MEDS: megestrol acetate 400mg/10ml UD oral suspension PO SCH ×2 (08:00→19:35)
[2017-11-22] MEDS: zonisamide 100mg capsule PO SCH (08:00)
[2017-11-22] MEDS: potassium Cl 40MEQ/NS 500ml 500 ML IV PRN (08:56)
[2017-11-22] MEDS: pantoprazole 40 MG vial IV SCH (09:05)
[2017-11-22] MEDS: heparin, porcine 5000 units/ml vial SQ SCH ×2 (09:06→20:00)
[2017-11-22 11:00] VITALS: BP 139/81
[2017-11-22 20:00] VITALS: BP 131/84
[2017-11-23] VITALS: BP 116/75
[2017-11-23] MEDS: insulin regular, human vial - multi-dose SQ SCH ×3 (02:02→14:04)
[2017-11-23] MEDS: normal saline 1000ml 1,000 ML IV SCH ×2 (04:15→17:35)
[2017-11-23 07:00] VITALS: BP 137/82
[2017-11-23 07:05] LABS: ALANINE AMINOTRANSFERASE 31 U/L (12-78); ALBUMIN 1.4 G/DL (3.4-5.0); ALBUMIN/GLOBULIN RATIO 0.4 (1.1-1.5); ALKALINE PHOSPHATASE 95 IU/L (46-116); ANION GAP 9 (8-16); ASPARTATE AMINO TRANSFERASE 32 U/L (10-37); BILIRUBIN,TOTAL 0.2 MG/DL (0.1-1.0); BLOOD UREA NITROGEN 16 MG/DL (7-18); BUN/CREATININE RATIO 26.7 (6.6-38.0); CALCIUM 7.7 MG/DL (8.5-10.1); CHLORIDE 111 MMOL/L (99-107); GLUCOSE 174 MG/DL (70-104); MAGNESIUM 1.7 MG/DL (1.5-2.4); PHOSPHORUS 2.9 MG/DL (2.3-4.5); POTASSIUM 3.8 MMOL/L (3.5-5.1); SODIUM 140 MMOL/L (135-145); TOTAL CARBON DIOXIDE 19.7 MMOL/L (24-32); TOTAL PROTEIN 4.8 G/DL (6.4-8.2); eGFR > 90 ML/MIN
[2017-11-23] MEDS: K and/or MAG REPLACEMENT MC SCH (07:09)
[2017-11-23] MEDS: pantoprazole 40 MG vial IV SCH (07:38)
[2017-11-23] MEDS: heparin, porcine 5000 units/ml vial SQ SCH (07:39)
[2017-11-23] MEDS: lactobacillus rhamnosus 10,000 MMU CELLS/CAPSULE PO SCH (07:47)
[2017-11-23] MEDS: citalopram 20mg tablet PO SCH (07:47)
[2017-11-23] MEDS: zonisamide 100mg capsule PO SCH (07:47)
[2017-11-23] MEDS: megestrol acetate 400mg/10ml UD oral suspension PO SCH (07:47)
[2017-11-23 11:31] VITALS: BP 140/83
[2017-11-23] MEDS ORDERED: morphine 2 MG/ML inj. syringe IV ONE (15:45)
[2017-11-23] MEDS: fat emulsion IV 100 ML, MVI, adult No.4 with vit. K 10 ML, Trace element-5 inj. 1 ML in... IV SCH ×8 (17:07)
== END 2017-11-23 18:42 | DRG 282 ==
LOC: ER 16:10 → ED HOLD 19:56 → SUR 3N 21:15
PROVIDERS: ADMIT Internal Medicine; ATTEND Family Medicine
PROC: BW251ZZ Computerized Tomography (CT Scan) of Chest, Abdomen and Pelvis using Low Osmolar Contrast (ICD-10-PCS; 2017-11-14)
PROC: 0D758ZZ Dilation of Esophagus, Via Natural or Artificial Opening Endoscopic (ICD-10-PCS; principal; 2017-11-16)
PROC: 02HV33Z Insertion of Infusion Device into Superior Vena Cava, Percutaneous Approach (ICD-10-PCS; 2017-11-19)
PROC: B548ZZA Ultrasonography of Superior Vena Cava, Guidance (ICD-10-PCS; 2017-11-19)
DX: K85.90 Acute pancreatitis without necrosis or infection, unspecified (principal); G93.40 Encephalopathy, unspecified; E43 Unspecified severe protein-calorie malnutrition; N17.9 Acute kidney failure, unspecified; R13.10 Dysphagia, unspecified; K76.89 Other specified diseases of liver; E86.0 Dehydration; B37.9 Candidiasis, unspecified; K86.3 Pseudocyst of pancreas; K86.1 Other chronic pancreatitis; D50.9 Iron deficiency anemia, unspecified; F17.200 Nicotine dependence, unspecified, uncomplicated; K22.4 Dyskinesia of esophagus; E87.6 Hypokalemia; I10 Essential (primary) hypertension; K52.9 Noninfective gastroenteritis and colitis, unspecified; B96.20 Unspecified Escherichia coli [E. coli] as the cause of diseases classified elsewhere; E11.9 Type 2 diabetes mellitus without complications; K44.9 Diaphragmatic hernia without obstruction or gangrene; K21.9 Gastro-esophageal reflux disease without esophagitis; N39.0 Urinary tract infection, site not specified; G89.29 Other chronic pain; Z86.73 Personal history of transient ischemic attack (TIA), and cerebral infarction without residual deficits; Z87.442 Personal history of urinary calculi; Z90.49 Acquired absence of other specified parts of digestive tract; Z87.828 Personal history of other (healed) physical injury and trauma; Z88.5 Allergy status to narcotic agent; Z88.8 Allergy status to other drugs, medicaments and biological substances; Z88.1 Allergy status to other antibiotic agents; Z91.030 Bee allergy status; Z82.3 Family history of stroke; Z82.49 Family history of ischemic heart disease and other diseases of the circulatory system; Z82.41 Family history of sudden cardiac death; Z84.89 Family history of other specified conditions; Z79.899 Other long term (current) drug therapy; Z68.24 Body mass index [BMI] 24.0-24.9, adult
CPT/HCPCS: 36415; 36569; 43450; 71045; 71260; 74018; 74177; 76937; 80048; 80053; 80305; 80320; 81001; 82103; 82140; 82378; 82607; 82746; 82948; 83036; 83605; 83690; 83735; 84100; 84134; 84145; 84478; 85025; 85610; 86301; 87040; 87070; 87077; 87088; 87186; 87324; 87449; 92616; 93005; 96360; 97110; 97116; 97161; 97530; 99285; A4315; A4353; A4620; A6212; A6213; A6250; A6258; C9113; G0500; J0696; J1170; J1644; J1815; J2060; J2250; J2270; J2405; J3010; J3411; J3475; J3480; J7030; Q9963; Q9967

== ENCOUNTER 2017-12-01 10:56 | Emergency (ER) | payer MEDICAID ==
[~2017-12-01] VITALS: Ht 152.4 cm; Wt 52.0 kg
[~2017-12-01 10:56] MED LIST changes: -ALBU18HF2 INH; -CEPH250T PO; -GABA-338 PO; +GABA600T2 PO; +LIPA1CAP PO; +MAGN400C PO; -MELO-100 PO; +ONDA8TAB13 PO; -ONDA8TAB6 PO; +OXYC20TA40 PO; -OXYC30TA88 PO; -PANCREAZE 4,201 EACH PO
[2017-12-01] MEDS ORDERED: ondansetron/PF 4mg/2ml inj IV ONE (11:05)
[2017-12-01] MEDS ORDERED: normal saline 1000ML IV soln IVB ONE (11:05)
[2017-12-01] MEDS ORDERED: morphine 4 MG/ML inj SYRINge IV PRN (11:05)
[2017-12-01 11:54] LABS: BASOPHILS % (AUTO) 0 % (0-1); EOSINOPHILS # (AUTO) 0.3 X10'3 (0-0.9); EOSINOPHILS % (AUTO) 1.1 % (0-6); HEMOGLOBIN 8.9 g/dl (12.0-16.0); LYMPHOCYTES # (AUTO) 0.9 X10'3 (1.1-4.8); LYMPHOCYTES % (AUTO) 3.5 % (21-51); MEAN CORPUSCULAR HEMOGLOBIN 33.8 PG (27.0-31.0); MEAN CORPUSCULAR HGB CONC 33.1 % (33.0-36.5); MEAN PLATELET VOLUME 9.4 FL (7.4-10.4); MONOCYTES % (AUTO) 4.1 % (2-12); NEUTROPHILS # (AUTO) 22.5 X10'3 (1.8-7.7); NEUTROPHILS % (AUTO) 91.3 % (42-75); PLATELET COUNT 395 X10'3 (140-440); RED BLOOD COUNT 2.65 X10'6 (4.20-5.60); RED CELL DISTRIBUTION WIDTH 17.5 % (11.5-14.5); WHITE BLOOD COUNT 24.6 X10'3 (4.5-11.0)
[2017-12-01 12:07] LABS: ALANINE AMINOTRANSFERASE 31 U/L (12-78); ALBUMIN/GLOBULIN RATIO 0.3 (1.1-1.5); ALKALINE PHOSPHATASE 102 IU/L (46-116); ANION GAP 6 (8-16); ASPARTATE AMINO TRANSFERASE 20 U/L (10-37); BILIRUBIN,TOTAL 0.3 MG/DL (0.1-1.0); BLOOD UREA NITROGEN 43 MG/DL (7-18); BUN/CREATININE RATIO 39.8 (6.6-38.0); CALCIUM 8.5 MG/DL (8.5-10.1); CHLORIDE 107 MMOL/L (99-107); CREATININE 1.08 MG/DL (0.40-0.90); GLUCOSE 379 MG/DL (70-104); POTASSIUM 4.2 MMOL/L (3.5-5.1); SODIUM 139 MMOL/L (135-145); TOTAL CARBON DIOXIDE 25.7 MMOL/L (24-32); eGFR 51 ML/MIN
[2017-12-01 12:18] LABS: CLARITY,URINE CLEAR (Clear); COLOR,URINE YELLOW (Yellow); GLUCOSE, URINE NEGATIVE (Neg); KETONES,URINE NEGATIVE (Neg); LEUKOCYTE ESTERASE ,URINE NEGATIVE (Neg); LIPASE 3760 U/L (73-393); NITRITES, URINE NEGATIVE (Neg); OCCULT BLOOD,URINE MODERATE (Neg); PROTEIN,URINE TRACE mg/dl (Neg); UROBILINOGEN,URINE 0.2 E.U/dL (0.2-1.0)
[2017-12-01 12:19] LABS: UA COLLECTION TYPE FOLEY CATH
[2017-12-01 12:34] LABS: BACTERIA,URINE FEW /HPF (Neg); MUCUS STRANDS NONE SEEN /LPF (Neg); RBC,URINE 0-2 /HPF (0-2); SQUAMOUS EPITHELIAL CELL,UR NONE SEEN /LPF (FEW); WBC,URINE NONE SEEN /HPF (0-4)
[2017-12-01 12:48] LABS: PLATELET ESTIMATE NORMAL; TOTAL CELLS COUNTED 100
[2017-12-01 12:50] LABS: ANISOCYTOSIS 2+; POLYCHROMASIA FEW; SCHISTOCYTES FEW; TARGET CELLS 1+
[2017-12-01 12:51] LABS: LARGE PLATELETS FEW
[2017-12-01 13:54] VITALS: BP 118/80
[2017-12-01] MEDS ORDERED: HYDROmorphone 1 mg/ml syringe IV ONE (14:00)
== END 2017-12-01 17:02 | disposition short-term general hospital (02) ==
LOC: ER 10:57
DX: K86.1 Other chronic pancreatitis (principal); I10 Essential (primary) hypertension; E11.9 Type 2 diabetes mellitus without complications; K21.9 Gastro-esophageal reflux disease without esophagitis; G89.29 Other chronic pain; Z86.73 Personal history of transient ischemic attack (TIA), and cerebral infarction without residual deficits; Z90.49 Acquired absence of other specified parts of digestive tract; Z88.1 Allergy status to other antibiotic agents; Z88.5 Allergy status to narcotic agent; Z91.030 Bee allergy status; Z88.8 Allergy status to other drugs, medicaments and biological substances; Z79.82 Long term (current) use of aspirin; Z79.899 Other long term (current) drug therapy
CPT/HCPCS: 36415; 74176; 74177; 80053; 81001; 83605; 83690; 85025; 87040; 96374; 96375; 99285; J2270; J2405; J7030